=== PATIENT | male | born 1960 | race Native Hawaiian/Other Pacific Islander ===

== ENCOUNTER 2018-07-18 12:19 | Emergency (ER) | payer OTHER ==
[~2018-07-18] VITALS: Ht 182.9 cm; Wt 95.3 kg
[2018-07-18 12:47] LABS: PLATELET COUNT 443 K/uL (142-355)
[2018-07-18 13:07] LABS: POTASSIUM 4.2 mmol/L (3.6-5.2)
[2018-07-18 13:55] VITALS: BP 115/79; TEMP 97.7
[2018-07-18] MEDS ORDERED: AMBIEN5 MG PO (17:04)
[2018-07-18] MEDS ORDERED: ABILIFY20 MG PO (17:04)
[2018-07-18] MEDS ORDERED: ARIPIPRAZOLE5 MG PO (17:05)
[2018-07-18] MEDS ORDERED: DIGOX125 MCG PO (17:07)
[2018-07-18] MEDS ORDERED: CHOL4POW11 PO (17:07)
[2018-07-18] MEDS ORDERED: FERROUS SULF325 M1 PO (17:08)
[2018-07-18] MEDS ORDERED: OMEGA 3 500 5001 CAP PO (17:15)
[2018-07-18] MEDS ORDERED: FLONASE AL50 MCG/ACT NAS (17:17)
[2018-07-18] MEDS ORDERED: GABA300C2 PO (17:18)
[2018-07-18] MEDS ORDERED: HYDR10TA47 PO (17:19)
[2018-07-18] MEDS ORDERED: LACTSYP31 PO (17:20)
[2018-07-18] MEDS ORDERED: LAMO25TA PO ×2 (17:21)
[2018-07-18] MEDS ORDERED: LIPITOR10 MG PO (17:22)
[2018-07-18] MEDS ORDERED: LOPERAMIDE2 MG PO (17:23)
[2018-07-18] MEDS ORDERED: ATIVAN2 M1 PO (17:24)
[2018-07-18] MEDS ORDERED: INSUINJ47 SC (17:25)
[2018-07-18] MEDS ORDERED: OXCARBAZEPIN300 MG PO (17:27)
[2018-07-18] MEDS ORDERED: TRAZODONE HYDR100 MG PO (17:28)
[2018-07-18] MEDS ORDERED: CETI10TA PO (17:29)
[2018-07-18] MEDS ORDERED: VITAMIN D31000 UNI1 PO (17:29)
== END 2018-07-18 14:01 | disposition other institution (70) ==
LOC: ED 12:19
PROVIDERS: Family Medicine
DX: R46.89 Other symptoms and signs involving appearance and behavior (principal); F25.9 Schizoaffective disorder, unspecified; Z04.6 Encounter for general psychiatric examination, requested by authority
CPT/HCPCS: 36415; 80053; 81000; 85027; 87088; 93005; 99285

== ENCOUNTER 2019-07-10 15:52 | Emergency (ER) | payer OTHER ==
[~2019-07-10] VITALS: Ht 152.4 cm; Wt 84.4 kg
[~2019-07-10 15:52] MED LIST: ABILIFY MYCITE15 MG PO; ABILIFY20 MG PO; AMANTADINE100 MG PO; AMBIEN5 MG PO; ARIPIPRAZOLE5 MG PO; ASCO500T18 PO; ATIVAN2 M1 PO; CETI10TA PO; CHOL4POW11 PO; CITA20TA2 PO; CLINDAMYCIN HC150 MG PO; CLON0.5T36 PO; CVS NICOTI21 MG/24 H TD; DIGOX125 MCG PO; FERROUS SULF325 M1 PO; FISH OIL500 M1 PO; FLONASE AL50 MCG/ACT NAS; GABA300C2 PO; HYDR10TA47 PO; INSUINJ47 SC; LACTSYP31 PO; LAMO100T PO; LAMO25TA PO; LIPITOR10 MG PO; LOPERAMIDE2 MG PO; MAGN400T4 PO; MAGNESIUM OXID400 M1 PO; MEDR2.5T19 PO; MULTTAB52 PO; NOVOLIN 70/30 F1 INJ SC; OMEGA 3 500 5001 CAP PO; OXCARBAZEPIN300 MG PO; PROVERA10 MG PO; TRAZODONE HYDR100 MG PO; VITAMIN D1000 UNI1 PO; VITAMIN D31000 UNI1 PO; ZINC220C4 PO
[2019-07-10 15:55] VITALS: BP 137/59; TEMP 98.1
[2019-07-10 16:37] LABS: PLATELET COUNT 443 K/uL (142-355)
[2019-07-10] MEDS ORDERED: ABILIFY20 MG PO (18:04)
[2019-07-10] MEDS ORDERED: FISH OIL500 M1 PO (18:05)
[2019-07-10] MEDS ORDERED: NOVOLOG MIX 70/30 PR SC (18:07)
== END 2019-07-10 16:55 | disposition other institution (70) ==
LOC: ED 15:52
PROVIDERS: Family Medicine
DX: R46.89 Other symptoms and signs involving appearance and behavior (principal); Z72.89 Other problems related to lifestyle; F31.89 Other bipolar disorder; F25.8 Other schizoaffective disorders; Z04.6 Encounter for general psychiatric examination, requested by authority
CPT/HCPCS: 36415; 80053; 81000; 85027; 93005; 99283; 99285